=== PATIENT | female | born 1975 | race Asian ===

== ENCOUNTER 2018-07-31 21:36 | Emergency (ER) | payer OTHER ==
[~2018-07-31] VITALS: Ht 154.9 cm; Wt 78.0 kg
[~2018-07-31 21:36] MED LIST: ATOR40TA71 PO; INSLAN SQ; PANT40TA25 PO; PERCT PO
[2018-07-31 22:23] LABS: GLUCOSE,POINT OF CARE 264 MG/DL (70-110)
[2018-08-01 01:40] VITALS: BP 110/80
== END 2018-08-01 02:10 | disposition home or self-care (01) ==
LOC: EMS 21:37
DX: G89.18 Other acute postprocedural pain (principal); E11.9 Type 2 diabetes mellitus without complications; S31.119D Laceration without foreign body of abdominal wall, unspecified quadrant without penetration into peritoneal cavity, subsequent encounter; X58.XXXD Exposure to other specified factors, subsequent encounter

== ENCOUNTER 2021-12-01 19:19 | Emergency (ER) | payer OTHER ==
[~2021-12-01 19:19] MED LIST changes: -ATOR40TA71 PO; -PANT40TA25 PO; -PERCT PO
== END 2021-12-01 20:30 | disposition left against medical advice (07) ==
LOC: EMS 19:27
DX: R05.9 Cough, unspecified (principal); Z53.21 Procedure and treatment not carried out due to patient leaving prior to being seen by health care provider

== ENCOUNTER 2022-02-06 10:32 | Emergency (ER) | payer OTHER ==
[~2022-02-06] VITALS: Ht 154.9 cm; Wt 78.0 kg
[2022-02-06 14:07] VITALS: BP 113/72
[2022-02-06] MEDS ORDERED: IBUPROFEN 600 MG TABLET PO ONE (14:15)
[2022-02-06] MEDS ORDERED: IBUP-2070 PO (15:22)
== END 2022-02-06 15:48 | disposition home or self-care (01) ==
LOC: EMS 10:32
DX: S93.401A Sprain of unspecified ligament of right ankle, initial encounter (principal); S20.211A Contusion of right front wall of thorax, initial encounter; E11.9 Type 2 diabetes mellitus without complications; E78.00 Pure hypercholesterolemia, unspecified; Z90.49 Acquired absence of other specified parts of digestive tract; Z98.890 Other specified postprocedural states; W19.XXXA Unspecified fall, initial encounter; Y93.89 Activity, other specified; Y92.89 Other specified places as the place of occurrence of the external cause; Y99.8 Other external cause status
CPT/HCPCS: 71101; 99284; 73610-TC; Z7502; Z7610

== ENCOUNTER 2023-02-19 01:13 | Emergency (ER) | payer OTHER ==
[~2023-02-19 01:13] MED LIST changes: +IBUP-1492 PO
[2023-02-19] MEDS ORDERED: LIDOCAINE 5% TRANSDERMAL PATCH TD ONE (03:15)
[2023-02-19] MEDS ORDERED: TraMADol HCL 50 MG TABLET PO ONE (03:15)
[2023-02-19] MEDS ORDERED: KETOROLAC TROMETHAMINE 30 MG/ML VIAL IM ONE (03:15)
[2023-02-19 03:50] LABS: APPEARANCE,URINE CLEAR (CLEAR); BILIRUBIN,URINE NEGATIVE (NEGATIVE); GLUCOSE, URINE (UA) >=1000 mg/dL (NEGATIVE); KETONES,URINE NEGATIVE (NEGATIVE); LEUKOCYTE ESTERASE ,URINE SMALL (NEGATIVE); NITRATE,URINE NEGATIVE (NEGATIVE); OCCULT BLOOD,URINE NEGATIVE (NEGATIVE); PROTEIN,URINE NEGATIVE (NEGATIVE); SPECIFIC GRAVITIY, URINE 1.037 (1.003-1.030); UROBILINOGEN,URINE <=1.0 mg/dL (<=1.0)
[2023-02-19 03:58] LABS: BASOPHILS % (AUTO) 0.3 % (0.0-2.0); HEMATOCRIT 41.8 % (36-46); HEMOGLOBIN 13.9 g/dL (12.0-16.0); LYMPHOCYTES # (AUTO) 1.9 K/uL (1.0-4.8); LYMPHOCYTES % (AUTO) 15.4 % (22.0-44.0); MEAN CORPUSCULAR HEMOGLOBIN 32.4 pg (26.0-34.0); MEAN CORPUSCULAR HGB CONC 33.3 G/dL (31.0-37.0); MEAN CORPUSCULAR VOLUME 97 fL (80-100); MONOCYTES # (AUTO) 0.7 K/uL (0.1-1.0); MONOCYTES % (AUTO) 5.4 % (2.0-9.0); NEUTROPHILS # (AUTO) 9.6 K/uL (1.8-7.7); NEUTROPHILS % (AUTO) 76.9 % (40.0-70.0); PLATELET COUNT (AUTO) 186 K/uL (150-450); RED BLOOD CELL COUNT(AUTO) 4.31 MIL/uL (4.00-5.20); RED CELL DISTRIBUTION WIDTH 12.5 % (11.5-14.5)
[2023-02-19 04:02] LABS: BACTERIA,URINE None Seen /HPF (None Seen); RBC,URINE None Seen /HPF (0-2); SQUAMOUS EPITHELIAL CELL,UR Few /LPF (None Seen)
[2023-02-19 04:06] LABS: ANION GAP 13 mmol/L (8-16); CALCIUM, TOTAL 8.7 mg/dL (8.8-10.5); CARBON DIOXIDE 27 mmol/L (22-29); CHLORIDE 99 mmol/L (98-107); CREATININE 0.78 mg/dL (0.60-1.30); GLOMERULAR FILTR. RATE CALC > 60 mL/min (>60); GLUCOSE,RANDOM 348 mg/dL (70-110); SODIUM SERUM 139 mmol/L (136-145)
[2023-02-19 04:09] LABS: ALANINE AMINOTRANSFERASE 42 U/L (12-78); ALBUMIN 3.6 g/dL (3.4-5.0); ALKALINE PHOSPHATASE 103 U/L (46-116); ASPARTATE AMINOTRANSFERASE 24 U/L (15-37); BILIRUBIN,TOTAL 0.5 mg/dL (0.1-1.0); TOTAL PROTEIN, SERUM 7.6 g/dL (6.4-8.2)
[2023-02-19 04:17] VITALS: BP 135/71
[2023-02-19] MEDS ORDERED: CYCL-448 PO (04:58)
== END 2023-02-19 05:29 | disposition home or self-care (01) ==
LOC: EMS 01:16
DX: M54.9 Dorsalgia, unspecified (principal); E11.9 Type 2 diabetes mellitus without complications; E78.00 Pure hypercholesterolemia, unspecified; Z90.49 Acquired absence of other specified parts of digestive tract; Z98.890 Other specified postprocedural states
CPT/HCPCS: 99284; 80053; 81001; 85025; 36415; 72072; 96372; J1885

== ENCOUNTER → 2024-12-28 | Emergency (ER) | payer OTHER ==
[~2024-12-28] VITALS: Ht 157.5 cm; Wt 72.0 kg
[~2024-12-28] MED LIST changes: +CYCL-448 PO; +ONDA-104 PO
[2024-12-28 19:08] VITALS: TEMP 98.2
[2024-12-28 19:47] LABS: BASOPHILS % (AUTO) 0.6 % (0.0-2.0); EOSINOPHILS % (AUTO) 2.3 % (1.0-6.0); HEMATOCRIT 47.3 % (36-46); LYMPHOCYTES # (AUTO) 2.6 K/uL (1.0-4.8); LYMPHOCYTES % (AUTO) 21.3 % (22.0-44.0); MEAN CORPUSCULAR HGB CONC 33.9 G/dL (31.0-37.0); MEAN CORPUSCULAR VOLUME 97 fL (80-100); MONOCYTES # (AUTO) 0.8 K/uL (0.1-1.0); MONOCYTES % (AUTO) 6.5 % (2.0-9.0); NEUTROPHILS # (AUTO) 8.4 K/uL (1.8-7.7); NEUTROPHILS % (AUTO) 69.3 % (40.0-70.0); PLATELET COUNT (AUTO) 178 K/uL (150-450); RED BLOOD CELL COUNT(AUTO) 4.87 MIL/uL (4.00-5.20); RED CELL DISTRIBUTION WIDTH 12.8 % (11.5-14.5); WHITE BLOOD COUNT (AUTO) 12.2 K/uL (4.5-11.0)
[2024-12-28 20:00] LABS: ALBUMIN 3.7 g/dL (3.4-5.0); BILIRUBIN,TOTAL 0.6 mg/dL (0.1-1.0); TOTAL PROTEIN, SERUM 8.4 g/dL (6.4-8.2)
[2024-12-28 20:05] LABS: ANION GAP 10 mmol/L (8-16); BILIRUBIN,DIRECT 0.1 mg/dL (0.00-0.20); CALCIUM, TOTAL 8.9 mg/dL (8.8-10.5); CARBON DIOXIDE 23 mmol/L (22-29); CHLORIDE 96 mmol/L (98-107); CREATININE 0.93 mg/dL (0.60-1.30); GLOMERULAR FILTR. RATE CALC > 60 mL/min (>60); POTASSIUM 4.7 mmol/L (3.5-5.1); SODIUM SERUM 129 mmol/L (136-145); UREA NITROGEN, BLOOD 15 mg/dL (7-18)
[2024-12-28 20:07] LABS: GLUCOSE,RANDOM 444 mg/dL (70-110); TROPONIN I-HIGH SENSITIVITY Less Than 4 ng/L (<51)
[2024-12-28] MEDS: ACETAMINOPHEN 500 MG TABLET PO ONE (20:50)
[2024-12-28] MEDS: ONDANSETRON HCL 4 MG/2 ML VIAL IVP ONE (20:50)
[2024-12-28] MEDS: SODIUM CHLORIDE 0.9% 1,000 ML IV ONE (20:50)
[2024-12-28] MEDS: MECLIZINE HCL 25 MG TABLET PO ONE (20:50)
[2024-12-28] MEDS: INSULIN REGULAR, HUMAN 100 UNITS/ML IVP ONE (20:51)
[2024-12-28 21:51] LABS: GLUCOMETER DEV NAME(LOC) ER.7; GLUCOSE,POINT OF CARE 238 MG/DL (70-110)
[2024-12-28 22:10] VITALS: BP 126/77; PULSE 83; RESP 18; O2SAT 95
== END | disposition home or self-care (01) ==
LOC: EMS 18:53
DX: E11.65 Type 2 diabetes mellitus with hyperglycemia (principal); I10 Essential (primary) hypertension; E78.00 Pure hypercholesterolemia, unspecified; Z90.49 Acquired absence of other specified parts of digestive tract
CPT/HCPCS: 99284; 96374; 96361; 96375; 80048; 80076; 82009; 82962 ×2; 84484; 85025; 36415; 93005; J1815; J2405; J7030